=== PATIENT | female | born 1985 | race Caucasian/White ===

== ENCOUNTER 2022-08-07 09:06 | Outpatient (CLI) | payer OTHER, SELFPAY ==
--- NOTE | 2022-08-07 09:15 | CRLHL7_ITS ---
For Patients: As a result of the Century Cures Act, medical imaging exams and procedure reports are released immediately into your electronic medical record. You may view this report before your referring provider. If you have questions, please contact your health care provider. BILATERAL BREAST MRI WITHOUT AND WITH GADOLINIUM, 08/11/2022 CLINICAL HISTORY: At increased risk for breast cancer who is a carrier of the BRCA gene mutation and has a strong family history of breast cancer. 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 INDICATION FOR BREAST MRI: High-risk screening breast MRI. COMPARISON STUDIES: Breast MRI 06/03/2021 and mammograms 12/26/2021 and 11/19/2020. CONTRAST: 15 mL Dotarem. TECHNIQUE: The patient was positioned prone using a breast coil. Multiple imaging sequences were obtained using 1-1.5 mm thick slices with no gap. The image sequences include T2-weighted STIR in the axial plane, T1-weighted nonfat-saturated gradient echo in the axial plane, pre- and post-contrast T1-weighted FLASH 3D with fat suppression in the axial plane, and T1-weighted FLASH high resolution 3D with fat suppression in the sagittal plane. Image post-processing was performed on a [employer] workstation. Complex 3D rendering including maximum intensity projections (MIPS) and volumetric renderings were obtained to optimize visualization of the extent of pathology and relationship to the nipple, skin, and chest wall. This aids in determining feasibility of breast conservation surgery. Subtraction, multiplanar reconstruction, mean curve determination, and angiogenesis mapping were also performed. The study was technically adequate. FINDINGS: Amount of Fibroglandular Tissue: Scattered fibroglandular tissue Breast Background Enhancement: Moderate. RIGHT Breast: There is no suspicious mass or enhancement within the breast. LEFT Breast: There is susceptibility artifact from a biopsy marking clip. No suspicious mass or enhancement within the breast. Lymph Nodes: No abnormal morphology lymph nodes. IMPRESSIONS AND RECOMMENDATIONS: 1. No MRI evidence of malignancy in either breast. 2. Annual screening mammography is recommended. If clinically indicated, continued screening breast MRI may also be performed, staggered at six-month intervals with screening mammography. BI-RADS Category 2: Benign. Dictated by Kaylin Augustin MD @ 08/11/2022 4:54:16 PM JR/Dictated by: Kaylin Augustin MD @ 08/11/2022 4:54:00 PM (Electronically Signed)
== END 2022-08-07 09:07 | disposition home or self-care (01) ==
LOC: MRI 09:08
PROVIDERS: Visit Provider Obstetrics & Gynecology
DX: Z12.39 Encounter for other screening for malignant neoplasm of breast (principal); R92.8 Other abnormal and inconclusive findings on diagnostic imaging of breast; Z15.01 Genetic susceptibility to malignant neoplasm of breast
CPT/HCPCS: 77049; A9575

== ENCOUNTER 2023-02-09 09:58 | Outpatient (CLI) | payer OTHER, SELFPAY ==
--- NOTE | 2023-02-09 10:15 | CRLHL7_ITS ---
For Patients: As a result of the Century Cures Act, medical imaging exams and procedure reports are released immediately into your electronic medical record. You may view this report before your referring provider. If you have questions, please contact your health care provider. DIGITAL BILATERAL SCREENING MAMMOGRAM WITH COMPUTER-AIDED DETECTION HISTORY: Screening. COMPARISON: 11/15/2018 and 11/19/2020. FINDINGS: There are areas of scattered fibroglandular density. Possible 1.5 cm asymmetry RIGHT lateral breast 5 cm from the nipple. Negative findings LEFT breast. IMPRESSION: Possible RIGHT breast asymmetry. Recommend CC spot compression view and 90-degree lateral view. Additionally, ultrasound may be needed during the diagnostic evaluation. BI-RADS Category 0: Incomplete: Need Additional Imaging Evaluation and/or Prior Mammograms for Comparison [facility] will contact the patient for follow-up. A lay language report of this examination will be provided to the patient. Dictated by: Caitlin Ren MD @02/09/2023 10:31:17 AM jj/Dictated by: Caitlin Ren MD @ 02/09/2023 10:32:00 AM (Electronically Signed)
== END 2023-02-09 09:59 | disposition home or self-care (01) ==
PROVIDERS: Visit Provider Obstetrics & Gynecology
DX: Z12.31 Encounter for screening mammogram for malignant neoplasm of breast (principal); R92.8 Other abnormal and inconclusive findings on diagnostic imaging of breast
CPT/HCPCS: 77063; 77067

== ENCOUNTER 2023-02-11 10:27 | Outpatient (CLI) | payer OTHER, SELFPAY ==
--- NOTE | 2023-02-11 10:45 | CRLHL7_ITS ---
For Patients: As a result of the Century Cures Act, medical imaging exams and procedure reports are released immediately into your electronic medical record. You may view this report before your referring provider. If you have questions, please contact your health care provider. RIGHT DIAGNOSTIC MAMMOGRAM WITH COMPUTER-AIDED DETECTION AND TOMOSYNTHESIS RIGHT BREAST ULTRASOUND CLINICAL HISTORY: RIGHT breast asymmetry. TECHNIQUE: These mammographic images have been obtained using full-field digital technique. These mammographic images were interpreted with the benefit of computer-aided detection. Breast Tomosynthesis was used in this interpretation. RIGHT breast ultrasound also performed. COMPARISON FILM: Mammogram 02/09/2023. BREAST COMPOSITION: There are areas of scattered fibroglandular density. FINDINGS: Spot compression views demonstrate spreading out of the glandular tissue. Ultrasound over the RIGHT lateral breast demonstrates no suspicious findings. There is a 1.1 x 0.5 x 0.7 cm cyst at the 10 o`clock position 5 cm from the nipple. IMPRESSION: Benign cyst in the 10 o`clock position 5 cm from the nipple RIGHT breast with spreading out of the glandular tissue in the upper outer breast. No mammographic or sonographic findings for malignancy. Would recommend return to yearly screening mammography. ASSESSMENT: BI-RADS Category 2: Benign A lay language report of this examination will be provided to the patient. Caitlin Ren M.D. Diagnostic/Breast Radiologist [email or web address] SARAVANAN/diogo lind/Dictated by: Caitlin Ren MD @ 02/11/2023 11:43:00 AM (Electronically Signed)
--- NOTE | 2023-02-11 11:15 | CRLHL7_ITS ---
For Patients: As a result of the Cures Act, medical imaging exams and procedure reports are released immediately into your electronic medical record. You may view this report before your referring provider. If you have questions, please contact your health care provider. PLEASE SEE DIGITAL DIAGNOSTIC RIGHT MAMMOGRAM PERFORMED SAME DAY CRL:diogo lind/Dictated by: Caitlin Ren MD @ 02/11/2023 11:31:00 AM (Electronically Signed)
== END 2023-02-11 10:28 | disposition home or self-care (01) ==
LOC: MAMMO 10:27
PROVIDERS: Visit Provider Obstetrics & Gynecology
DX: N63.10 Unspecified lump in the right breast, unspecified quadrant (principal); R92.8 Other abnormal and inconclusive findings on diagnostic imaging of breast
CPT/HCPCS: 76642; 77065; G0279

== ENCOUNTER 2023-08-05 08:29 | Outpatient (CLI) | payer OTHER, SELFPAY ==
--- NOTE | 2023-08-05 08:45 | CRLHL7_ITS ---
For Patients: As a result of the 21st Century Cures Act, medical imaging exams and procedure reports are released immediately into your electronic medical record. You may view this report before your referring provider. If you have questions, please contact your health care provider. BILATERAL BREAST MRI WITHOUT AND WITH GADOLINIUM CLINICAL HISTORY: 38-year-old female with elevated risk of breast cancer due to BRCA 2 mutation. INDICATION FOR BREAST MRI: Screening breast MRI in this high-risk woman. COMPARISON STUDIES: Breast MRI 08/07/2022, 06/02/2021 and 05/18/2020. CONTRAST: 20 cc of dotarem TECHNIQUE: The patient was positioned prone using a breast coil. Multiple imaging sequences were obtained using 1-1.5 mm thick slices with no gap. The image sequences include T2-weighted STIR in the axial plane, T1-weighted nonfat-saturated gradient echo in the axial plane, pre- and post-contrast T1-weighted FLASH 3D with fat suppression in the axial plane, and T1-weighted FLASH high resolution 3D with fat suppression in the sagittal plane. Image post-processing was performed on a [employer] workstation. Complex 3D rendering including maximum intensity projections (MIPS) and volumetric renderings were obtained to optimize visualization of the extent of pathology and relationship to the nipple, skin, and chest wall. This aids in determining feasibility of breast conservation surgery. Subtraction, multiplanar reconstruction, mean curve determination, and angiogenesis mapping were also performed. The study was technically adequate. FINDINGS: Evaluation is somewhat limited due to patient motion. Amount of Fibroglandular Tissue: Heterogeneous fibroglandular tissue. Breast Background Enhancement: Moderate. RIGHT Breast: No suspicious areas of enhancement. LEFT Breast: No suspicious areas of enhancement. There are mildly dilated ducts on the left which contains T2 hyperintense debris which is also isointense to fat on the T1 weighted images. This appears similar to the prior exam. Lymph Nodes: No adenopathy. IMPRESSIONS AND RECOMMENDATIONS: Negative, there is no MRI evidence of malignancy in either breast. Continued annual screening mammography and as clinically indicated screening breast MRI. BI-RADS Category 1: Negative Dictated by Yina Hawk MD @ 08/11/2023 2:27:49 PM/guevara NAVARRO/Dictated by: Yina Hawk MD @ 08/11/2023 2:27:00 PM (Electronically Signed)
== END 2023-08-05 08:30 | disposition home or self-care (01) ==
PROVIDERS: Visit Provider Obstetrics & Gynecology
DX: Z12.39 Encounter for other screening for malignant neoplasm of breast (principal); Z15.01 Genetic susceptibility to malignant neoplasm of breast; Z15.09 Genetic susceptibility to other malignant neoplasm; Z91.89 Other specified personal risk factors, not elsewhere classified
CPT/HCPCS: 77049; A9575

== ENCOUNTER 2024-02-24 09:57 | Outpatient (CLI) | payer OTHER, SELFPAY ==
--- NOTE | 2024-02-24 10:15 | MM_ITS ---
Patient: RON TRAMMELL Facility:?[facility] Patient ID:?[id number] Site Patient ID:?[id number]. Site :?[id number] Study:?XRay-Breast Bilateral 3D W/CAD-02/24/2024 10:25:13 AM Ordering Physician:Awa Zaragoza Final Report: BILATERAL SCREENING MAMMOGRAM WITH COMPUTER-AIDED DETECTION AND TOMOSYNTHESIS TECHNIQUE: CC and MLO views were obtained. These mammographic images have been obtained using full-field digital technique. These mammographic images were interpreted with the benefit of computer-aided detection. Breast tomosynthesis was used in this interpretation. COMPARISON FILM: 02/11/23, 02/09/23, 12/26/21. FINDINGS: There are scattered areas of fibroglandular density. IMPRESSION: There is no radiographic evidence for malignancy. ASSESSMENT: BI-RADS Category 2: Benign RECOMMENDATION: Routine screening mammogram in 1 year. A lay language report of this examination will be provided to the patient. PROSPER MILTON M.D. Diagnostic Radiologist [email or web address] DYLAN/doc D& Transcribed: 4:[address]/Dictated by: Prosper Milton MD @ 02/24/2024 11:49:00 AM Signed by:?Prosper Milton MD @02/25/2024 5:29:51 AM (Electronic Signature)
== END 2024-02-24 09:58 | disposition home or self-care (01) ==
LOC: MAMMO 09:57
PROVIDERS: Visit Provider Obstetrics & Gynecology
DX: Z12.31 Encounter for screening mammogram for malignant neoplasm of breast (principal)
CPT/HCPCS: 77063; 77067

== ENCOUNTER 2024-09-01 08:59 | Outpatient (CLI) | payer BC, SELFPAY ==
--- NOTE | 2024-09-01 09:15 | CRLHL7_ITS ---
For Patients: As a result of the 21st Century Cures Act, medical imaging exams and procedure reports are released immediately into your electronic medical record. You may view this report before your referring provider. If you have questions, please contact your health care provider. BILATERAL BREAST MRI WITHOUT AND WITH GADOLINIUM CLINICAL HISTORY: Elevated risk of breast carcinoma related to BRCA 2 gene mutation. Strong family history of breast and ovarian cancer. No current breast concerns. Status post MRI-guided needle core biopsy LEFT 2 o`clock location, 4 cm from the nipple with pathology showing a complex fibroadenoma. INDICATION FOR BREAST MRI: Screening breast MRI in this high-risk woman. COMPARISON STUDIES: MRI: 08/05/2023, 08/07/2022, 06/03/2021. Mammogram 02/24/2024, 02/09/2023, 02/11/2023. CONTRAST: Dotarem 20 ml. TECHNIQUE: The patient was positioned prone using a breast coil. Multiple imaging sequences were obtained using 1-1.5 mm thick slices with no gap. The image sequences include T2-weighted STIR in the axial plane, T1-weighted nonfat-saturated gradient echo in the axial plane, pre- and post-contrast T1-weighted FLASH 3D with fat suppression in the axial plane, and T1-weighted FLASH high resolution 3D with fat suppression in the sagittal plane. Image post-processing was performed on a [employer] workstation. Complex 3D rendering including maximum intensity projections (MIPS) and volumetric renderings were obtained to optimize visualization of the extent of pathology and relationship to the nipple, skin, and chest wall. This aids in determining feasibility of breast conservation surgery. Subtraction, multiplanar reconstruction, mean curve determination, and angiogenesis mapping were also performed. The study was technically adequate. FINDINGS: Amount of Fibroglandular Tissue: Heterogeneous fibroglandular tissue. Breast Background Enhancement: Marked. RIGHT Breast: No suspicious mass or non-mass enhancement. LEFT Breast: No suspicious mass or non-mass enhancement. Lymph Nodes: Negative for lymphadenopathy. Other Findings: None. IMPRESSIONS AND RECOMMENDATIONS: 1. No MRI evidence of malignancy in either breast. 2. Annual screening mammography is recommended. If clinically indicated, continued screening breast MRI may also be performed, staggered at six-month intervals with screening mammography. BI-RADS Category 1: Negative Dictated by Anna Arcos MD @ 09/02/2024 11:44:02 AM jj/Dictated by: Anna Arcos MD @ 09/02/2024 11:44:00 AM (Electronically Signed)
== END 2024-09-01 09:00 | disposition home or self-care (01) ==
LOC: MRI 09:00
PROVIDERS: Visit Provider Obstetrics & Gynecology
DX: Z12.39 Encounter for other screening for malignant neoplasm of breast (principal); Z91.89 Other specified personal risk factors, not elsewhere classified; Z15.01 Genetic susceptibility to malignant neoplasm of breast; Z15.09 Genetic susceptibility to other malignant neoplasm
CPT/HCPCS: 77049; A9575

== ENCOUNTER 2025-03-03 12:53 | Outpatient (CLI) | payer BC, SELFPAY ==
--- NOTE | 2025-03-03 13:00 | CRLHL7_ITS ---
For Patients: As a result of the Century Cures Act, medical imaging exams and procedure reports are released immediately into your electronic medical record. You may view this report before your referring provider. If you have questions, please contact your health care provider. INDICATION: BILATERAL SCREENING MAMMOGRAM, ASYMPTOMATIC 39 Y/O FEMALE COMPARISON: 02/24/24, 02/11/23, 02/09/23 TECHNIQUE: CC and MLO views were obtained. These mammographic images have been obtained using full-field digital technique. These mammographic images were interpreted with the benefit of computer aided detection and tomosynthesis. BREAST COMPOSITION: The breasts are heterogeneously dense, which may obscure small masses. FINDINGS: No suspicious findings. ASSESSMENT: BI-RADS 2 Benign RECOMMENDATION: Annual screening mammogram. A lay language report of this examination will be provided to the patient. Dictated by: Jeb Ríos MD @ 03/07/2025 12:12:16 (Electronically Signed)
== END 2025-03-03 12:54 | disposition home or self-care (01) ==
LOC: MAMMO 12:54
PROVIDERS: Visit Provider Obstetrics & Gynecology
DX: Z12.31 Encounter for screening mammogram for malignant neoplasm of breast (principal); R92.333 Mammographic heterogeneous density, bilateral breasts
CPT/HCPCS: 77063; 77067

== ENCOUNTER 2025-08-31 07:52 | Outpatient (CLI) | payer BC, SELFPAY ==
--- NOTE | 2025-08-31 08:15 | CRLHL7_ITS ---
For Patients: As a result of the Century Cures Act, medical imaging exams and procedure reports are released immediately into your electronic medical record. You may view this report before your referring provider. If you have questions, please contact your health care provider. BILATERAL BREAST MRI WITHOUT AND WITH GADOLINIUM CLINICAL HISTORY: BRCA 2 positive gene mutation. INDICATION FOR BREAST MRI: Screening due to increased risk for breast cancer COMPARISON STUDIES: March 03, 2025, 09/01/2024, 08/05/2023 CONTRAST: 15 mL Dotarem TECHNIQUE: The patient was positioned prone using a breast coil. Multiple imaging sequences were obtained using 1-1.5 mm thick slices with no gap. The image sequences include T2-weighted STIR in the axial plane, T1-weighted nonfat-saturated gradient echo in the axial plane, pre- and post-contrast T1-weighted FLASH 3D with fat suppression in the axial plane, and T1-weighted FLASH high resolution 3D with fat suppression in the sagittal plane. Image post-processing was performed on a [employer] workstation. Complex 3D rendering including maximum intensity projections (MIPS) and volumetric renderings were obtained to optimize visualization of the extent of pathology and relationship to the nipple, skin, and chest wall. This aids in determining feasibility of breast conservation surgery. Subtraction, multiplanar reconstruction, mean curve determination, and angiogenesis mapping were also performed. The study was technically adequate. FINDINGS: Amount of Fibroglandular Tissue: Heterogeneous Breast Background Enhancement: Mild RIGHT Breast: No suspicious mass or non-mass enhancement. Cyst lateral breast. LEFT Breast: No suspicious mass or non-mass enhancement signal void from the marker clip placed at biopsy showing a complex fibroadenoma. Lymph Nodes: No suspicious lymph node IMPRESSIONS AND RECOMMENDATIONS: Negative for signs of malignancy. Follow-up with annual screening mammography offset by 6 months with annual breast MRI BI-RADS: 2-benign Dictated by Tatiana Vasquez MD @ 09/01/2025 9:24:15 AM (Electronically Signed)
== END 2025-08-31 07:53 | disposition home or self-care (01) ==
LOC: MRI 07:53
PROVIDERS: Visit Provider Obstetrics & Gynecology
DX: Z12.39 Encounter for other screening for malignant neoplasm of breast (principal); Z15.01 Genetic susceptibility to malignant neoplasm of breast; Z15.09 Genetic susceptibility to other malignant neoplasm; Z91.89 Other specified personal risk factors, not elsewhere classified
CPT/HCPCS: 77049; A9575